=== PATIENT | female | born 1950 | race Caucasian/White ===

== ENCOUNTER 2024-07-16 09:33 | Emergency (ER) | payer MEDICARE, MEDICAID ==
[~2024-07-16] VITALS: Ht 172.7 cm; Wt 77.3 kg
[2024-07-16] MEDS ORDERED: METFORMIN HCL500 MG PO (09:56)
[2024-07-16] MEDS ORDERED: GABAPENTIN300 MG PO (09:56)
[2024-07-16] MEDS ORDERED: METOPROLOL SUCC50 MG PO (09:56)
[2024-07-16] MEDS ORDERED: LISINOPRIL20 MG PO (09:56)
[2024-07-16] MEDS ORDERED: ELIQUIS5 MG PO (09:57)
[2024-07-16] MEDS ORDERED: HYDROCHLOROTHIA25 MG PO (09:57)
[2024-07-16] MEDS ORDERED: DICLOXACILLIN SODIUM 250 MG CAP PO ONE (11:00)
[2024-07-16] MEDS ORDERED: DICLOXACILLIN500 MG PO (11:03)
[2024-07-16 11:13] VITALS: BP 155/78
[2024-07-17] MEDS ORDERED: HYDROCODON-ACE1 EA10 PO (13:23)
== END 2024-07-16 11:14 | disposition home or self-care (01) ==
LOC: ED 09:33
DX: L03.012 Cellulitis of left finger (principal); I10 Essential (primary) hypertension; Z79.84 Long term (current) use of oral hypoglycemic drugs; Z79.01 Long term (current) use of anticoagulants; Z79.899 Other long term (current) drug therapy
CPT/HCPCS: 99282

== ENCOUNTER 2024-07-17 11:17 | Emergency (ER) | payer MEDICARE, MEDICAID ==
[~2024-07-17] VITALS: Ht 172.7 cm; Wt 77.7 kg
[~2024-07-17 11:17] MED LIST: DICLOXACILLIN500 MG PO; ELIQUIS5 MG PO; GABAPENTIN300 MG PO; HYDROCHLOROTHIA25 MG PO; LISINOPRIL20 MG PO; METFORMIN HCL500 MG PO; METOPROLOL SUCC50 MG PO
--- OUTSIDE RECORDS SUMMARY | 2024-07-17 11:23 | XMS ---
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 Bertha VISIT COUNT (12 MO.) 2 [facility] TOTAL 2 NOTE: Visits indicate total known visits. ED/UCC VISIT TRACKING (12 MO.) 07/17/2024 11:17 [facility] [place] TYPE: Emergency COMPLAINT: - RT KNEE PAIN 07/16/2024 09:34 [facility] [place] TYPE: Emergency COMPLAINT: - LT FINGER SWELLING INPATIENT VISIT TRACKING (12 MO.) No inpatient visits to display in this time frame [email or web address]
[2024-07-17] MEDS ORDERED: HYDROCODONE/ACETA 7.5/325 TAB PO ONE (12:30)
[2024-07-17] MEDS ORDERED: HYDROCODON-ACE1 EA10 PO (13:23)
[2024-07-17 13:28] VITALS: BP 158/83
== END 2024-07-17 13:32 | disposition home or self-care (01) ==
LOC: ED 11:17
DX: M17.11 Unilateral primary osteoarthritis, right knee (principal); I10 Essential (primary) hypertension; R73.03 Prediabetes; Z79.84 Long term (current) use of oral hypoglycemic drugs; Z79.01 Long term (current) use of anticoagulants; Z79.899 Other long term (current) drug therapy
CPT/HCPCS: 73560; 99283; A9270

== ENCOUNTER 2024-10-20 08:27 | Emergency (ER) | payer OTHER, MEDICARE, MEDICAID ==
[~2024-10-20] VITALS: Ht 172.7 cm; Wt 75.7 kg
[~2024-10-20 08:27] MED LIST changes: +HYDROCODON-ACE1 EA10 PO
[2024-10-20 09:34] VITALS: BP 130/76
== END 2024-10-20 09:34 | disposition home or self-care (01) ==
LOC: ED 08:27
DX: S52.515A Nondisplaced fracture of left radial styloid process, initial encounter for closed fracture (principal); S52.125A Nondisplaced fracture of head of left radius, initial encounter for closed fracture; I10 Essential (primary) hypertension; R73.03 Prediabetes; Z86.718 Personal history of other venous thrombosis and embolism; Z86.711 Personal history of pulmonary embolism; Z79.84 Long term (current) use of oral hypoglycemic drugs; Z79.01 Long term (current) use of anticoagulants; Z79.899 Other long term (current) drug therapy; W01.0XXA Fall on same level from slipping, tripping and stumbling without subsequent striking against object, initial encounter; Y93.E9 Activity, other interior property and clothing maintenance
CPT/HCPCS: 73080; 73110; 73560; 99283